=== PATIENT | male | born 1975 | race African-American/Black ===

== ENCOUNTER 2017-02-15 08:04 | Emergency (ER) | payer OTHER ==
[2017-02-15 08:13] VITALS: BP 151/85; PULSE 86; TEMP 98.5; BMI 24.4
[2017-02-15] MEDS ORDERED: diazePAM 5 MG TABLET PO ONE (08:43)
[2017-02-15] MEDS ORDERED: KETOROLAC TROMETHAMINE 60 MG/2 ML VIAL IM ONE (08:43)
[2017-02-15] MEDS ORDERED: KETOROLAC TROMETHAMINE 60 MG/2 ML VIAL ONE (08:49)
[2017-02-15] MEDS ORDERED: diazePAM 5 MG TABLET ONE (08:50)
--- NOTE | 2017-02-15 09:00 | PDOC ---
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 Pt denies direct trauma. Pt has history of low back pain in the past. PMHX asthma. Occurred: reports: last week Severity: reports: severe Pain Location: reports: back Modifying Factors: improves with: None Loss of Consciousness: no loss of consciousness Past History - Past Medical History Allergies/Adverse Reactions: Allergies Allergy/AdvReac Type Severity Reaction Status Date / Time No Known Allergies Allergy Verified 02/15/17 08:13 Home Medications: Ambulatory Orders Diazepam [Valium] 5 mg PO Q8H PRN #12 tablet MDD 15mg 02/15/17 Methylprednisolone [Medrol Dose Mathieu] 4 mg PO ASDIR #21 tablet 02/15/17 NK [No Known Home Medication] 02/15/17 Asthma: Yes COPD: No - Surgical History Abdominal Surgery: Yes (HERNIA) - Suicide/Smoking/Psychosocial Hx Smoking History: Current every day smoker Number of Cigarettes Smoked Daily: 1 Information on smoking cessation initiated: Yes 'Breaking Loose' booklet given: 02/15/17 Hx Alcohol Use: No Drug/Substance Use Hx: No Trauma Specific PMHX - Complaint Specific PMHX Arthritis: No Back Injury: No Neck Injury: No Hx Sacro Iliac Joint Dysfunction: No Review of Systems - Review of Systems Able to Perform ROS?: Yes Is the patient limited [place] proficient: No Constitutional: No: Symptoms Reported HEENTM: No: Symptoms Reported Respiratory: No: Symptoms reported, Other Cardiac (ROS): No: Symptoms Reported ABD/GI: No: Symptoms Reported : No: Symptoms Reported Musculoskeletal: Yes: See HPI, Back Pain *Physical Exam - Vital Signs Last Vital Signs Temp Pulse Resp BP Pulse Ox 98.5 F 86 20 151/85 100 02/15/17 08:10 02/15/17 08:10 02/15/17 08:10 02/15/17 08:10 02/15/17 08:10 - Physical Exam General Appearance: Yes: Nourished, Appropriately Dressed HEENT: positive: EOMI, ROSMERY Neck: positive: Supple. negative: Tender Respiratory/Chest: positive: Lungs Clear, Normal Breath Sounds. negative: Chest Tender Cardiovascular: positive: Regular Rhythm, Regular Rate Gastrointestinal/Abdominal: positive: Normal Bowel Sounds, Soft. negative: Tender Rectal Exam: positive: normal rectal tone Musculoskeletal: positive: Normal Inspection, Decreased Range of Motion, Muscle Spasm (right lower paraspinal lumbar soft tissue to buttock ). 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 negative: Sensory Deficit (nv intact neg numbness or tingling to LE ) Medical Decision Making - Medical Decision Making 02/15/17 09:01 cc: acute low back pain with spasm denies bowel or bladder dysfunction denies saddle anesthesia neg veterbral tenderness right lower para spinal lumbar soft tissue tenderness nv intact will give toradol and valium *DC/Admit/Observation/Transfer Diagnosis at time of Disposition: Low back pain Qualifiers: Chronicity: acute Back pain laterality: right Sciatica presence: with sciatica Sciatica laterality: sciatica of right side Qualified Code(s): M54.41 - Lumbago with sciatica, right side; M54.41 - Lumbago with sciatica, right side - Discharge Dispostion Disposition: HOME Condition at time of disposition: Good - Prescriptions Prescriptions: Methylprednisolone [Medrol Dose Mathieu] 4 mg PO ASDIR #21 tablet Diazepam [Valium] 5 mg PO Q8H PRN #12 tablet MDD 15mg PRN Reason: Muscle Spasms - Referrals Referrals: Dione Akhtar [Primary Care Provider] - Amor Arenas MD [Staff Physician] - - Patient Instructions Printed Discharge Instructions: DI for Low Back Pain Additional Instructions: warm moist heat to lower back take the medication as prescribed no driving operating machinery or drinking alcohol while taking the medication follow up with call today to make appointment for next available time no work until cleared by the orthopedist or your medical doctor no heavy lifting or bending - Post Discharge Activity Forms/Work/School Notes: Back to Work
== END 2017-02-15 09:23 | disposition home or self-care (01) ==
LOC: JERFT 08:04
PROC: 3E0233Z Introduction of Anti-inflammatory into Muscle, Percutaneous Approach (ICD-10-PCS; principal; 2017-02-15)
DX: M54.41 Lumbago with sciatica, right side (principal); X58.XXXA Exposure to other specified factors, initial encounter; Y93.89 Activity, other specified; Y92.89 Other specified places as the place of occurrence of the external cause; Y99.0 Civilian activity done for income or pay; F17.210 Nicotine dependence, cigarettes, uncomplicated; J45.909 Unspecified asthma, uncomplicated
CPT/HCPCS: 99281-25